=== PATIENT | female | born 1990 | race American Indian/Alaskan Native ===

== ENCOUNTER 2016-12-22 17:25 | Emergency (ER) | payer MEDICAID ==
--- NOTE | 2016-12-22 19:50 | Emergency Department Report ---
HPI - General Chief Complaint: Dental/Oral Time Seen by Provider: 12/22/16 19:27 - HPI HPI: The patient is a 26-year-old female at 28 weeks gestation who is compliant with PROCESS ENGINEERING TECHNICIAN visits who presents to ED complaining of 8/10 pain in the right side of his mouth x one half months. Patient states that the pain started 2 months ago and has increased in severity over the days. The pain is exacerbated by eating and opening of the mouth. The pain is located on the right lower side of the mouth. Patient states that her wisdom tooth the back on the right side. She denies any complications with the . Patient states the pain is alleviated initially with pain medication but comes back. Patient states that it radiates towards ear. Patient describes a as a throbbing, pressure-like sensation. Patient states otherwise well and has no other complaints. Patient has had no fevers and no chills. No chest pain, no shortness of breath. No abdominal pain. No shortness of breath or recent trauma to the face. ED Past Medical Hx - Past Medical History Hx Diabetes: Yes (IDDM) - Surgical History Past Surgical History?: No - Social History Smoking Status: Never Smoker Substance Use Type: None - Medications Home Medications: Home Medications Medication Instructions Recorded Confirmed Last Taken Type Insulin Aspart Prot/Aspart(Nf) See Protocol SQ QACHS 03/29/15 03/29/15 03/28/15 History [NovoLOG Mix 70/30 VIAL] Sulfamethoxazole/Trimethoprim 1 each PO BID #6 tablet 03/29/15 Unknown Rx [Bactrim DS TAB] Acetaminophen/Codeine [Tylenol 1 tab PO Q6H #12 tablet 12/22/16 Unknown Rx /Codeine # 3 tab] Amoxicillin [Trimox CAP] 500 mg PO TID #24 capsule 12/22/16 Unknown Rx ED Review of Systems ROS: Stated complaint: TOOTHACHE Other details as noted in HPI Constitutional: denies: chills, fever Eyes: denies: eye pain, eye discharge, vision change ENT: dental pain. denies: ear pain, throat pain Respiratory: denies: cough, shortness of breath, wheezing Cardiovascular: denies: chest pain, palpitations Endocrine: no symptoms reported Gastrointestinal: denies: abdominal pain, nausea, vomiting, diarrhea Genitourinary: denies: urgency, dysuria, discharge Musculoskeletal: denies: back pain, joint swelling, arthralgia Skin: denies: rash, lesions Neurological: denies: headache, weakness, paresthesias, abnormal gait Psychiatric: denies: anxiety, depression Hematological/Lymphatic: denies: easy bleeding, easy bruising Physical Exam - Physical Exam Vital Signs: Vital Signs 12/22/16 17:33 Temperature 98.7 F Pulse Rate 88 Respiratory 16 Rate Blood Pressure 124/81 O2 Sat by Pulse 100 Oximetry Physical Exam: GENERAL: Alert and oriented x3, mild distress due to tooth pain, Normal Gait, atraumatic. HEAD: Head is normocephalic and a-traumatic. EYES: Extra ocular muscles are intact. Pupils are equal, round, and reactive to light and accommodation. EARS: symetrical, atraumatic, non tender, ear canal clear and moderate cerumen, tympanic membrance non inflamed. gross auditory nml bilaterally. MOUTH:Mouth is well hydrated and without lesions. Tonsils nonerythematous or swollen, Uvula midline, Tongue not elevated. Mucous membranes are moist. Posterior pharynx clear, no exudate or lesions. Patent airways. No missing teeth, no gingival enlargement, tenderness to palpation of teeth #32, presents in moderately out with minor dental caries. LUNGS: Symetrical with respiration, No wheezing, no rales or crackles, CTAB. HEART: S1, S2 present, regular rate and rhythm without murmur, no rubs, no gallops. Non tender to palpation SKIN: Warm and dry, No lesions, No ulceration or induration present. ED Course Vital Signs 12/22/16 17:33 Temperature 98.7 F Pulse Rate 88 Respiratory 16 Rate Blood Pressure 124/81 O2 Sat by Pulse 100 Oximetry ED Medical Decision Making - Medical Decision Making 26-year-old female who presents with right-sided Facial pain secondary to odontogenic caries/infection ED course: Patient received 1000 mg of amoxicillin, 1 tablets of Tylenol No. 3. Odontogenic infection versus ear infection. Based upon history and physical examination, pain is a result of an infection of tooth number 32 and that the pain she feels on the right side of his face and towards the ear is referred pain from this infectious process. She has no evidence of acute impending airway compromise. At this point, patient will be discharged home on some antibiotics and pain trial, she will do well with an outpatient course of antibiotics. Follow up with the Dental Clinic as referred. Vital signs are normal patient is in no acute distress. Critical care attestation.: If time is entered above; I have spent that time in minutes in the direct care of this critically ill patient, excluding procedure time. ED Disposition Clinical Impression: Pain due to dental caries, Tooth infection Disposition: TO HOME OR SELFCARE Is pt being admited?: No Does the pt Need Aspirin: No Condition: Stable Instructions: Toothache (ED), Dental Caries (ED) Prescriptions: Acetaminophen/Codeine [Tylenol /Codeine # 3 tab] 1 tab PO Q6H #12 tablet Amoxicillin [Trimox CAP] 500 mg PO TID #24 capsule Referrals: PRIMARY CARE, [Primary Care Provider] - 3-5 Days [facility] [Outside] - 3-5 Days [facility] [Outside] - 3-5 Days Forms: Accompanied Note, Work/School Release Form(ED) Time of Disposition: 19:57
[2016-12-22] MEDS ORDERED: TRIMOX PO ONE (19:51)
[2016-12-22] MEDS ORDERED: TYLENOL #3 PO ONE (19:51)
[2016-12-22 20:34] VITALS: BP 111/72
== END 2016-12-22 20:37 | disposition home or self-care (01) ==
LOC: ED 17:25
DX: O98.813 Other maternal infectious and parasitic diseases complicating pregnancy, third trimester (principal); K08.89 Other specified disorders of teeth and supporting structures; E10.9 Type 1 diabetes mellitus without complications; Z79.4 Long term (current) use of insulin; Z3A.25 25 weeks gestation of pregnancy
CPT/HCPCS: 99282

== ENCOUNTER 2017-03-04 08:33 | Outpatient (CLI) | payer MEDICAID ==
[2017-03-04 09:08] VITALS: BP 112/65
[2017-03-04] MEDS ORDERED: BRETHINE SUB-Q ONE (11:19)
[2017-03-04 11:46] LABS: Bacteria,Urine 1+ /HPF (Negative); Bilirubin,Urine NEG (Negative); Blood,Urine SM (Negative); Ketones,Urine 20 mg/dL (Negative); Leukocyte Esterase,Urine MOD (Negative); Mucus,Urine FEW /HPF; Nitrite,Urine NEG (Negative); Protein,Urine <15 mg/dL mg/dL (Negative); Urobilinogen,Urine < 2.0 mg/dL (<2.0)
[2017-03-04] MEDS ORDERED: LACTATED RINGERS 500 ML IV ONE (12:00)
== END 2017-03-04 11:45 | disposition home or self-care (01) ==
LOC: TRG 08:33
PROVIDERS: ATTEND Obstetrics & Gynecology
DX: O47.03 False labor before 37 completed weeks of gestation, third trimester (principal); Z87.891 Personal history of nicotine dependence; Z3A.36 36 weeks gestation of pregnancy
CPT/HCPCS: 59025; 81001; 96360

== ENCOUNTER 2017-03-13 13:20 | Inpatient (IN) | payer MEDICAID ==
[2017-03-13] MEDS ORDERED: BRETHINE SUB-Q PRN (15:59)
[2017-03-13] MEDS ORDERED: ePHEDrine SULFATE IV PRN ×2 (15:59→22:28)
[2017-03-13] MEDS ORDERED: MINERAL OIL PO PRN (15:59)
[2017-03-13] MEDS ORDERED: BRETHINE IVP PRN (15:59)
[2017-03-13] MEDS ORDERED: XYLOCAINE 2% INFILTRATI ONE (15:59)
[2017-03-13] MEDS ORDERED: NUBAIN IV PRN (15:59)
[2017-03-13] MEDS ORDERED: PITOCin/NS 20 UNIT/1000ML DRIP 20 UNITS/1,000 ML BAG IV SCH (16:00)
[2017-03-13] MEDS ORDERED: LACTATED RINGERS 1,000 ML ONE (16:08)
--- NOTE | 2017-03-13 16:38 | History and Physical Report ---
History of Present Illness Date of examination: 03/13/17 Date of admission: 03/13/17 13:20 Chief complaint: demise at 37 weeks History of present illness: This patient is a 26-year-old female , LMP 06/24/2016, EDC 03/31/2017 who is at 37 weeks and 3 days gestation who was sent from the [facility] office with diagnosis of demise. She did have an ultrasound at the office which confirmed the demise. She went for a routine visit today and said that her baby has not been moving for the past 2 days. She did not call any provider or go to the hospital to be evaluated. She has a history of pre-gestational type 2 diabetes and has been on insulin since prior to this . She has been followed at [facility] and has been having weekly NST and biophysical profile. Her last visit with the perinatologist was a week ago on 03/06/2017 where her biophysical profile of 8/8 and NST was reactive. Her fasting glucose has been in the 80-91 range and 2 hours postprandial between 110-120s. On arrival to the maternity floor, she complained of irregular contractions. She denied any vaginal bleeding or fluid leakage. Past medical history: Pre-gestational diabetes-II, has been taking insulin since prior to this . Genital herpes has been on suppressive therapy since 36 weeks gestation. Past surgical history denies Allergies: denies any drug allergies. Social history: denies any smoking alcohol or drug use. Family history: noncontributory. SANE RN history: 12, 28, 4-5 days. Obstetric history: nulligravida. Medications: insulin, Valtrex. Review of systems: as above. Physical exam: Geneeral: No acute distress. HEENT: normal. Cardiovascular: normal abnormal heart sound. Chest: clear to auscultation bilaterally. Breast exam: deferred. Neuro: Alert, awake, oriented 3. Extremities: no edema or tenderness no Homans sign. Abdomen: is soft nontender palpable contractions uterus gravid. Pelvic exam cervix is 2 cm 50% dilated -2 station labs: RPR nonreactive, hepatitis B surface antigen negative, HIV negative, type and screen O+, quad screen negative for Down syndrome. Assessment: 1. 26 years old at 37 weeks and 3 days gestation with demise. Will admit the patient to maternity floor. Routine admission labs, TORCH titer, coagulation profile. 2. Early labor. Pitocin augmentation. 3. Pre-gestational diabetes type 2. Will do FS every hours with insulin coverage. 4. GBS positive. Antibiotics for endometritis prophylaxis. 5. Genital herpes. No outbreak currently. Past History - Obstetrical History : 1 Medications and Allergies Allergies Allergy/AdvReac Type Severity Reaction Status Date / Time No Known Allergies Allergy Verified 10/18/15 09:27 Home Medications Medication Instructions Recorded Confirmed Last Taken Type Amoxicillin [Trimox CAP] 500 mg PO QDAY 03/04/17 03/04/17 1 Day Ago History Insulin Regular, Human 14 unit SQ QHS 03/04/17 03/04/17 1 Day Ago History Insulin Regular, Human 20 unit SQ QAM 03/04/17 03/04/17 1 Day Ago History NovoLIN N 10 unit SQ TID 03/04/17 03/04/17 1 Day Ago History Active Meds: Active Medications Ephedrine Sulfate (Ephedrine Sulfate) 10 mg IV Q2M PRN PRN Reason: Hypotension Stop: 03/13/17 16:04 Ampicillin Sodium (Polycillin/Ns 1 Gm/50 Ml) 1 gm in 50 mls @ 100 mls/hr IV Q4HR NARA PRN Reason: Protocol Lactated Ringer's (Lactated Ringers) 1,000 mls @ 125 mls/hr IV DIRECT NARA Oxytocin/Sodium Chloride (Pitocin/Ns 20 Unit/1000ml Drip) 20 units in 1,000 mls @ 125 mls/hr IV DIRECT NARA Lidocaine (Xylocaine 2%) 20 ml INFILTRATI ONCE ONE Stop: 03/13/17 16:00 Mineral Oil (Mineral Oil) 30 ml PO QHS PRN PRN Reason: Constipation Nalbuphine HCl (Nubain) 10 mg IV Q2H PRN PRN Reason: Pain, Moderate (4-6) - Vital Signs Vital signs: Vital Signs Pulse BP 77 120/69 03/13/17 14:56 03/13/17 14:56 Temp Pulse Resp BP Pulse Ox 84 129/86 03/13/17 15:26 03/13/17 15:26 Results Abnormal lab results 03/13/17 Range/Units 15:03 POC Glucose 185 H (70-105) All other labs normal.
[2017-03-13 17:20] LABS: Hematocrit 43.6 % (30.3-42.9); Hemoglobin 15.4 gm/dl (10.1-14.3); Mean Corpuscular HGB Conc 35 % (30-34); Mean Corpuscular Hemoglobin 30 pg (28-32); Mean Corpuscular Volume 85 fl (79-97); Platelet Count 210 K/mm3 (140-440); Red Blood Count 5.12 M/mm3 (3.65-5.03); Red Cell Distribution Width 13.6 % (13.2-15.2); White Blood Count 8.9 K/mm3 (4.5-11.0)
[2017-03-13] MEDS: LACTATED RINGERS 1,000 ML IV SCH ×3 (17:47→23:15)
[2017-03-13] MEDS ORDERED: AMBIEN PO PRN (17:49)
[2017-03-13] MEDS ORDERED: CYTOTEC VG SCH (18:00)
--- NOTE | 2017-03-13 18:04 | Progress Note ---
Assessment and Plan A: IUP @ 37 3/7 Weeks Pre-Gesational Diabetes IUFD P: Cytotec 100mcg intravaginally x 1 After Cytotec; start Pitocin Augmentation Continue MD Management for Diabetes Subjective - Subjective Date of service: 03/13/17 Patient reports: contractions Objective - Vital Signs Vital Signs: Vital Signs - 12hr 03/13/17 03/13/17 03/13/17 14:56 15:26 16:57 Pulse Rate 77 84 80 Blood Pressure 120/69 129/86 110/65 03/13/17 03/13/17 17:27 17:58 Pulse Rate 81 76 Blood Pressure 103/64 126/75 - Exam Breasts: normal Cardiovascular: Regular rate Lungs: Clear to auscultation, Normal air movement Abdomen: Present: normal appearance, soft, normal bowel sounds Uterus: Present: normal, firm, fundal height above umbilicus FHR: other Uterine Contraction Monitor Mode: External Cervical Dilatation: 3 (Intact) Cervical Effacement Percentage: 60 station: -2 Uterine Contraction Pattern: Irregular Uterine Contraction Intensity: Mild Extremities: normal - Labs Labs: Abnormal Labs 03/13/17 03/13/17 15:03 16:53 RBC 5.12 H Hgb 15.4 H Hct 43.6 H MCHC 35 H POC Glucose 185 H Laboratory Results - last 24 hr 03/13/17 03/13/17 03/13/17 15:03 16:53 16:53 WBC 8.9 RBC 5.12 H Hgb 15.4 H Hct 43.6 H MCV 85 MCH 30 MCHC 35 H RDW 13.6 Plt Count 210 POC Glucose 185 H Blood Type O POSITIVE Antibody Screen TNR
[2017-03-13] MEDS ORDERED: PITOCin/NS 30 UNIT/500ML 30 UNITS/500 ML BAG IV SCH (19:00)
[2017-03-13] MEDS: STADOL IV PRN ×2 (19:10→21:14)
[2017-03-13] MEDS ORDERED: ePHEDrine SULFATE ONE (22:25)
[2017-03-13] MEDS ORDERED: NARCAN 2 MG/2 ML IV PRN (22:28)
--- NOTE | 2017-03-13 22:28 | Anesthesia Consultation ---
Anesthesia Consult and Med Hx Date of service: 03/13/17 - Airway Anesthetic Teeth Evaluation: Good ROM Head & Neck: Adequate Mental/Hyoid Distance: Adequate Mallampati Class: Class II Intubation Access Assessment: Probably Good - Pulmonary Exam CTA: Yes - Cardiac Exam Cardiac Exam: RRR - Pre-Operative Health Status ASA Pre-Surgery Classification: ASA2 Proposed Anesthetic Plan: Epidural - Pulmonary Hx Asthma: No COPD: No Hx Pneumonia: No - Cardiovascular System Hx Hypertension: No - Central Nervous System Hx Seizures: No Hx Psychiatric Problems: No - Endocrine Hx Renal Disease: No Hx End Stage Renal Disease: No Hx Hypothyroidism: No Hx Hyperthyroidism: No - Hematic Hx Anemia: No Hx Sickle Cell Disease: No - Other Systems Hx Alcohol Use: No
[2017-03-13] MEDS ORDERED: fentaNYL-BUPIV 2 MCG/ML-0.125% 200 MCG/100 ML BAG EPIDURAL SCH (23:00)
[2017-03-13] MEDS: POLYCILLIN/NS 1 GM/50 ML 1 GM/50 ML BAG IV SCH (23:15)
[2017-03-14] MEDS: STADOL IV PRN (02:04)
[2017-03-14] MEDS: POLYCILLIN/NS 1 GM/50 ML 1 GM/50 ML BAG IV SCH ×2 (02:49→03:20)
[2017-03-14] MEDS ORDERED: CYTOTEC ONE (03:59)
[2017-03-14] MEDS ORDERED: CYTOTEC PR ONE (04:00)
[2017-03-14] MEDS ORDERED: BENADRYL PO PRN (04:07)
[2017-03-14] MEDS ORDERED: MILK OF MAGNESIA PO PRN (04:07)
[2017-03-14] MEDS ORDERED: PHENERGAN PR PRN (04:07)
[2017-03-14] MEDS ORDERED: NORCO 5/325 PO PRN (04:07)
[2017-03-14] MEDS ORDERED: DULCOLAX PR PRN (04:07)
[2017-03-14] MEDS ORDERED: ZOFRAN IV PRN (04:07)
[2017-03-14] MEDS ORDERED: TUCKS PAD TP PRN (04:07)
[2017-03-14] MEDS ORDERED: LANSINOH TP PRN (04:07)
--- NOTE | 2017-03-14 04:14 | Procedure Note ---
OB Delivery Note - Delivery Date of Delivery: 03/14/17 (0349) Surgeon: DAVID BARRERA Estimated blood loss: 300cc - Vaginal Delivery presentation: vertex Delivery position: OA Intrapartum events: other(please specify) (Diabetes) Delivery induction: misoprostol Delivery augmentation: rupture of membranes (AROM of a large amount of clear fluid at 0325) Delivery monitor: external uterine Route of delivery: Delivery placenta: spontaneous Delivery cord: 3 umbilical vessels Episiotomy: none Delivery laceration: none Anesthesia: epidural Delivery comments: of a 6'9 male demise at 0349 on 03/14/2017 with Apgars of 0,0,0 over a intact perineum under epidural anesthesia. Cord clamped and cut and demise placed of warmer. Spontaneous delivery of placenta complete and intact with Hernandez side presenting at 0352. Fundus boggy immediately after placental delivery. 20U of Pitocin given IM; followed by 1000mcg of Cytotec placed rectally. Fundus became firm with external uterine massage. Placenta to pathology. - Infant A at 1 minute: 0 at 5 minutes: 0 Gender: Male (6'9)
[2017-03-14] MEDS ORDERED: SODIUM CHLORIDE FLUSH SYRINGE 10 ML IV NR (05:00)
[2017-03-14] MEDS ORDERED: PITOCin/NS 20 UNIT/1000ML DRIP 20,000 MILLIUNITS/1,000 ML BAG IV ONE (06:25)
[2017-03-14] MEDS: MOTRIN PO SCH ×3 (06:51→17:42)
[2017-03-14] MEDS: COLACE PO SCH ×2 (12:10→22:48)
[2017-03-14] MEDS ORDERED: D50W (25GM) Syringe IV PRN (14:39)
[2017-03-14 16:16] LABS: Hematocrit 39.6 % (30.3-42.9)
[2017-03-15] MEDS: MOTRIN PO SCH ×3 (00:14→12:04)
--- NOTE | 2017-03-15 08:53 | Progress Note ---
Assessment and Plan A: S/P Vaginal delivery, stillborn Diabetes P; Discharge home today Subjective - Subjective Date of service: 03/15/17 Principal diagnosis: Patient reports: appetite normal (stillborn) Objective - Vital Signs Latest vital signs: Vital Signs Temp Pulse Resp BP BP Pulse Ox 03/15/17 04:00 98.6 F 69 16 111/76 03/15/17 00:00 98.6 F 78 16 111/69 03/14/17 19:30 98.6 F 74 16 101/59 03/14/17 16:07 98.3 F 74 18 100/68 99 03/14/17 11:51 98.0 F 69 16 104/61 91 Intake and Output 03/14/17 03/15/17 03/15/17 22:59 06:59 14:59 Intake Total 540 Balance 540 Intake: Oral 240 Intake, Free Water 300 Other: Total, Intake Amount 240 # Voids Void 1 - Exam Breasts: Present: deferred, mass Lungs: Present: Clear to auscultation Abdomen: Present: soft Vulva: both: normal Uterus: Present: fundal height below umbilicus Extremities: Present: normal Deep Tendon Reflex Grade: Normal +2 - Labs Labs: Abnormal lab results 03/14/17 03/14/17 03/14/17 Range/Units 03:27 11:58 17:00 POC Glucose 268 H 303 H 233 H (70-105) 03/14/17 03/15/17 Range/Units 22:19 07:55 POC Glucose 176 H 140 H (70-105)
--- NOTE | 2017-03-15 08:54 | Discharge Summary ---
Providers - Providers Date of Admission: 03/13/17 13:20 Date of discharge: 03/15/17 Attending physician: SILVERIO CASSIDY MD 03/14/17 14:39 Consult to Dietitian/Nutrition [CONS] Routine Physician Instructions: Reason For Exam: Reason for Consult: Diet education Primary care physician: SILVERIO CASSIDY MD Hospitalization Reason for admission: induction of labor, IUFD Delivery: Episiotomy: none Laceration: none Incision: normal Other procedures: none complications: none Discharge diagnosis: intrapartum demise baby: male Condition at discharge: Good Disposition: DC-01 TO HOME OR SELFCARE Plan - Provider Discharge Summary Activity: routine, no sex for 6 weeks, no strenuous exercise Diet: routine Instructions: routine Additional instructions: [] Smoking cessation referral if applicable(refer to patient education folder for contact #) [] Refer to [facility] Booklet Call your doctor immediately for: * Fever > 100.5 * Heavy vaginal bleeding ( >1 pad per hour) * Severe persistent headache * Shortness of breath * Reddened, hot, painful area to leg or breast * Drainage or odor from incision. * Keep incision clean and dry at all times and follow doctor's instructions regarding bathing/showering - Follow up plan Follow up: SILVERIO CASSIDY MD [Primary Care Provider] - 6 Weeks
[2017-03-15] MEDS: COLACE PO SCH (12:05)
[2017-03-15 14:25] VITALS: BP 96/64
[2017-03-15 19:59] LABS: TOXOPLASMA IGM AB <8.00 AU/mL (<8.00)
[2017-03-16 20:46] LABS: CYTOMEGALOVIRUS AB IGM <30.00 AU/mL (<30.00)
== END 2017-03-15 14:50 | disposition home or self-care (01) | DRG 774 ==
LOC: LD 13:20 → OB 03-14 06:16
PROVIDERS: ADMIT Obstetrics & Gynecology; ATTEND Obstetrics & Gynecology
PROC: 10E0XZZ Delivery of Products of Conception, External Approach (ICD-10-PCS; principal; 2017-03-14)
PROC: 3E0R3BZ Introduction of Anesthetic Agent into Spinal Canal, Percutaneous Approach (ICD-10-PCS; 2017-03-14)
PROC: 3E0P3VZ Introduction of Hormone into Female Reproductive, Percutaneous Approach (ICD-10-PCS; 2017-03-14)
PROC: 00HU33Z Insertion of Infusion Device into Spinal Canal, Percutaneous Approach (ICD-10-PCS; 2017-03-14)
DX: O36.4XX0 Maternal care for intrauterine death, not applicable or unspecified (principal); O24.12 Pre-existing type 2 diabetes mellitus, in childbirth; O98.32 Other infections with a predominantly sexual mode of transmission complicating childbirth; A60.00 Herpesviral infection of urogenital system, unspecified; O99.824 Streptococcus B carrier state complicating childbirth; Z37.1 Single stillbirth; Z3A.37 37 weeks gestation of pregnancy
CPT/HCPCS: 36415; 82962; 85014; 85018; 85027; 85220; 85613; 86592; 86644; 86645; 86777; 86778; 86850; 86900; 86901; 88307; J0290; J0595; J1815; J2300; J2590; J7120

== ENCOUNTER 2017-09-19 08:14 | Emergency (ER) | payer MEDICAID ==
[2017-09-19 08:45] VITALS: BP 127/78
[2017-09-19] MEDS ORDERED: TYLENOL/CODEINE PO ONE (10:16)
[2017-09-19] MEDS ORDERED: MOTRIN PO ONE (10:16)
[2017-09-19] MEDS ORDERED: DELTASONE PO ONE (10:17)
--- NOTE | 2017-09-19 10:18 | Emergency Department Report ---
Minor Respiratory - HPI Chief Complaint: Sore Throat Stated Complaint: SORE THROAT/COUGH Time Seen by Provider: 09/19/17 10:14 Duration: 3 Days Severity: moderate Minor Respiratory: Yes Rhinorrhea, Yes Sore Throat, Yes Able to Tolerate Fluids , Yes Cough, No Ear Pain, No Sick Contacts, No Hemoptysis, No Chest Pain, No Shortness of Breath, No Fever Other History: 27-year-old female presents with a yellow sputum productive cough in, runny nose the past 3 or 4 days. ED Review of Systems ROS: Stated complaint: SORE THROAT/COUGH Other details as noted in HPI Constitutional: denies: chills, fever Eyes: denies: eye pain, eye discharge, vision change ENT: congestion. denies: ear pain, throat pain, dental pain, hearing loss Respiratory: cough. denies: shortness of breath, wheezing Cardiovascular: denies: chest pain, palpitations Endocrine: no symptoms reported Gastrointestinal: denies: abdominal pain, nausea, vomiting, diarrhea, constipation Genitourinary: denies: urgency, dysuria, discharge Musculoskeletal: denies: back pain, joint swelling, arthralgia Skin: denies: rash, lesions Neurological: denies: headache, weakness, paresthesias Psychiatric: denies: anxiety, depression Hematological/Lymphatic: denies: easy bleeding, easy bruising ED Past Medical Hx - Past Medical History Hx Hypertension: No Hx Congestive Heart Failure: No Hx Diabetes: No Hx Deep Vein Thrombosis: No Hx Renal Disease: No Hx Sickle Cell Disease: No Hx Seizures: No Hx Asthma: No Hx COPD: No Hx HIV: No - Social History Smoking Status: Current Every Day Smoker Substance Use Type: None - Medications Home Medications: Home Medications Medication Instructions Recorded Confirmed Last Taken Type Amoxicillin [Trimox CAP] 500 mg PO QDAY 03/04/17 03/14/17 1 Day Ago History ~03/03/17 Insulin Regular, Human 14 unit SQ QHS 03/04/17 03/14/17 1 Day Ago History ~03/03/17 Insulin Regular, Human 20 unit SQ QAM 03/04/17 03/14/17 1 Day Ago History ~03/03/17 NovoLIN N 10 unit SQ TID 03/04/17 03/14/17 1 Day Ago History ~03/03/17 Ibuprofen [Motrin] 600 mg PO Q8H PRN #30 tablet 09/19/17 Unknown Rx Nystas/Diphen/Xyl Visc/Mylanta 30 ml MM Q4H PRN #200 ml 09/19/17 Unknown Rx [Magic Mouthwash] guaiFENesin ER [Mucinex ER] 600 mg PO Q12H #20 tablet.er 09/19/17 Unknown Rx Minor Respiratory Exam - Exam General: Vital signs noted. No distress. Alert and acting appropriately. HEENT: Yes Moist Mucous Membranes, No Pharyngeal Erythema, No Pharyngeal Exudates, No Rhinorrhea, No Conjuctival Injection, No Frontal Tenderness, No Maxillary Tenderness Ear: Neither TM Bulge, Neither TM Erythema, Neither EAC Pain, Neither EAC Discharge Neck: Yes Supple, No Adenopathy Lungs: Yes Good Air Exchange, No Wheezes, No Ronchi, No Stridor, No Cough, No Labored Respirations, No Retractions, No Use of Accessory Muscles, No Other Abnormal Lung Sounds Heart: Yes Regular, No Murmur Abdomen: Yes Normal Bowel Sounds, No Tenderness, No Peritoneal Signs Skin: No Rash, No Edema Neurologic: Alert and oriented, no deficits. Musculoskeletal: Unremarkable. ED Course Vital Signs 09/19/17 08:42 Temperature 99.3 F Pulse Rate 94 H Respiratory 20 Rate Blood Pressure 127/78 O2 Sat by Pulse 99 Oximetry ED Medical Decision Making - Radiology Data Radiology results: report reviewed, image reviewed Fluoro Time In Minutes: CHEST 2 VIEWS INDICATION: Cough, fever. COMPARISON: None similar at this institution. FINDINGS: PA and lateral chest radiographs demonstrate normal cardiomediastinal silhouette. Clear lungs. Intact bones. CONCLUSION: No acute disease in the chest. Thank you for the opportunity to participate in this patient's care. Transcribed By: RS Dictated By: PORTIA MERCEDES MD Electronically Authenticated By: PORTIA MERCEDES MD Signed Date/Time: 09/19/17 1040 - Medical Decision Making 27-year-old female presents with flulike symptoms. Fever resolved no fever during the ED stay. Chest x-ray ordered, chest x-ray shows no acute finding Discussed with the patient symptomatic relief with [id number] medications. Discussed continue Tylenol or Motrin as needed for fever and pain. Discussed increase fluids and diet intake. Discussed rest much needed. Discussed daily vitamin C for immune booster. Discussed follow-up with pcp in 3-5 days. Patient's mother verbally states she understands and will comply the following instructions and follow-up Vital signs stable. Patient is in no acute distress Critical care attestation.: If time is entered above; I have spent that time in minutes in the direct care of this critically ill patient, excluding procedure time. ED Disposition Clinical Impression: URI with cough and congestion Disposition: DC- TO HOME OR SELFCARE Is pt being admited?: No Does the pt Need Aspirin: No Condition: Stable Instructions: Upper Respiratory Infection (ED), Acute Cough (ED) Additional Instructions: Make sure to follow up with the primary care physician as discussed. Take all your medications as you've been prescribed. If you have any worsening symptoms or develop new symptoms please return to ED immediately. Prescriptions: guaiFENesin ER [Mucinex ER] 600 mg PO Q12H #20 tablet.er Ibuprofen [Motrin] 600 mg PO Q8H PRN #30 tablet PRN Reason: Pain Nystas/Diphen/Xyl Visc/Mylanta [Magic Mouthwash] 30 ml MM Q4H PRN #200 ml PRN Reason: Sore Throat Referrals: MERARY TAY MD [Primary Care Provider] - 3-5 Days [facility] [Outside] - 3-5 Days [facility] [Outside] - 3-5 Days [facility] [Outside] - 3-5 Days Forms: Work/School Release Form(ED) Time of Disposition: 11:27
--- NOTE | 2017-09-19 10:45 | XRay Report ---
CHEST 2 VIEWS INDICATION: Cough, fever. COMPARISON: None similar at this institution. FINDINGS: PA and lateral chest radiographs demonstrate normal cardiomediastinal silhouette. Clear lungs. Intact bones. CONCLUSION: No acute disease in the chest. Thank you for the opportunity to participate in this patient's care.
== END 2017-09-19 11:35 | disposition home or self-care (01) ==
LOC: ED 08:14
DX: J06.9 Acute upper respiratory infection, unspecified (principal); F17.200 Nicotine dependence, unspecified, uncomplicated
CPT/HCPCS: 71046; 99283; J7512

== ENCOUNTER 2020-05-09 13:08 | Outpatient (CLI) | payer MEDICAID ==
[2020-05-09] MEDS ORDERED: LACTATED RINGERS 1,000 ML IV SCH (14:00)
[2020-05-09] MEDS: TERBUTALINE 1 MG/1 ML INJ SUB-Q SCH ×2 (14:18→16:10)
--- NOTE | 2020-05-09 16:31 | Ultrasound Report ---
US OB limited, US OB BPP wo non-stress INDICATION / CLINICAL INFORMATION: presenation, ASHLI. COMPARISON: None available. FINDINGS: A single fetus is seen in breech position. ASHLI is 15.7. heart rate is 165. BPP is 8/8 IMPRESSION: Single fetus in breech position with heart rate 165. ASHLI is 15.7 and BPP is 8/8 Signer Name: Carter Galvez MD FACR Signed: 05/09/2020 4:27 PM Workstation Name: [id number]
[2020-05-09 16:50] VITALS: BP 115/65
== END 2020-05-09 18:03 | disposition home or self-care (01) ==
LOC: APU 13:08 → TRG 13:08
PROVIDERS: ATTEND Obstetrics & Gynecology
DX: O62.9 Abnormality of forces of labor, unspecified (principal); O24.119 Pre-existing type 2 diabetes mellitus, in pregnancy, unspecified trimester; E11.9 Type 2 diabetes mellitus without complications; Z79.4 Long term (current) use of insulin; Z87.891 Personal history of nicotine dependence; Z3A.36 36 weeks gestation of pregnancy
CPT/HCPCS: 59025; 76815; 76819; 96360; 96361; 96372; J3105; J7120

== ENCOUNTER 2020-05-12 19:29 | Inpatient (IN) | payer MEDICAID ==
--- NOTE | 2020-05-12 22:22 | Ultrasound Report ---
OB Ultrasound HISTORY: presentation. TECHNIQUE: Grayscale and color imaging performed. COMPARISON: 05/09/2020 IMPRESSION: A single image shows a cephalic presentation of the fetus. Signer Name: Pb Lamar MD Signed: 05/12/2020 10:17 PM Workstation Name: [id number]
[2020-05-12] MEDS ORDERED: fentaNYL 100 MCG/2 ML INJ IV PRN (22:45)
[2020-05-12] MEDS ORDERED: MINERAL OIL 30 ML ORAL LIQD PO PRN (22:45)
[2020-05-12] MEDS ORDERED: TERBUTALINE 1 MG/1 ML INJ SUB-Q PRN (22:45)
[2020-05-12] MEDS ORDERED: BUTORPHANOL 2 MG/1 ML INJ IV PRN ×2 (22:45)
[2020-05-12] MEDS ORDERED: LIDOCAINE (2%) 20 MG/1 ML VIAL 20 ML MDV INFILTRATI ONE (22:45)
[2020-05-12] MEDS ORDERED: AMPICILLIN/NS 2 GM/100 ML 2 GM/100 ML BAG IV ONE (22:45)
[2020-05-12] MEDS ORDERED: ePHEDrine SULFATE 50 MG/1 ML INJ IV PRN (22:45)
[2020-05-12] MEDS ORDERED: OXYTOCIN DRIP 30 UNITS/500 ML BAG IV SCH ×2 (23:00)
[2020-05-12] MEDS ORDERED: KETOROLAC 30 MG/1 ML INJ ONE (23:30)
[2020-05-12] MEDS ORDERED: FAMOTIDINE 20 MG/2 ML INJ IV ONE (23:40)
[2020-05-12] MEDS ORDERED: BICITRA ORAL LIQD 30ML PO ONE (23:40)
[2020-05-12 23:41] LABS: Hematocrit 43.1 % (30.3-42.9); Hemoglobin 14.7 gm/dl (10.1-14.3); Mean Corpuscular HGB Conc 34 % (30-34); Mean Corpuscular Volume 86 fl (79-97); Platelet Count 247 K/mm3 (140-440); Red Blood Count 5.04 M/mm3 (3.65-5.03); Red Cell Distribution Width 13.7 % (13.2-15.2)
[2020-05-12] MEDS ORDERED: METOCLOPRAMIDE 10 MG/2 ML INJ IV NR (23:45)
--- NOTE | 2020-05-12 23:51 | Anesthesia Day of Surgery ---
Anesthesia Day of Surgery - Day of Surgery Patient Examined: Yes Patient H&P Reviewed: Yes Patient is NPO: Yes
--- NOTE | 2020-05-12 23:51 | Anesthesia Consultation ---
Anesthesia Consult and Med Hx Date of service: 05/12/20 - Airway Anesthetic Teeth Evaluation: Good ROM Head & Neck: Adequate Mental/Hyoid Distance: Adequate Mallampati Class: Class II Intubation Access Assessment: Probably Good - Pulmonary Exam CTA: Yes - Cardiac Exam Cardiac Exam: RRR - Pre-Operative Health Status ASA Pre-Surgery Classification: ASA2 Proposed Anesthetic Plan: Spinal - Pulmonary Hx Asthma: No COPD: No Hx Pneumonia: No - Cardiovascular System Hx Hypertension: No - Central Nervous System Hx Seizures: No Hx Psychiatric Problems: No - Endocrine Hx Renal Disease: No Hx End Stage Renal Disease: No Hx Hypothyroidism: No Hx Hyperthyroidism: No - Hematic Hx Anemia: Yes Hx Sickle Cell Disease: No - Other Systems Hx Alcohol Use: (NOT SINCE )
[2020-05-12] MEDS ORDERED: BUPIVACAINE/PF (0.5%) 5 MG/1 ML 30 ML VIAL INFILTRATI ONE (23:54)
[2020-05-12] MEDS ORDERED: MORPHINE PF 10MG/10 ML AMPULE ONE (23:55)
[2020-05-12] MEDS ORDERED: ONDANSETRON 4 MG/2 ML INJ ONE (23:57)
--- NOTE | 2020-05-13 | History and Physical Report ---
History of Present Illness Date of examination: 05/12/20 Date of admission: 05/12/20 Chief complaint: "I think I'm in labor" History of present illness: 29 y/o single AA FM presents to [facility] @ 37 wks with c/o uc. Pt denies VB and admits to active FM. She states she was scheduled for a c/s at 37 wks r/t breech presentation. An us was done and baby was found to be vertex. Pt initiated her care at 5 4/7 wks at [facility]. 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 She was being co managed by [facility] and taking N42 and R28 in am and R28 and N28 at HS. Pt states she took her Insulin this am and last checked her bs after breakfast. [facility] had ordered an EKG for pt, but she states the EKG was not done. Pt further states she has not taken Valtrex. Upon an assess of pt's genital area herpetic lesions were noted. Dr Ferrell was notified and a c/s was called by . Pt was admitted to L&D for a c/s. Pt states the last time she had something to eat or drink was around 4:30pm. LABS: O pos, AB screen neg, H/H 14/40.9, pap wnl, rubella Immune, RPR NR, HBsAg neg, HIV neg, platelets 332k, Varicella Immune, HSV -2 pos, HGB elec AA, gc/chly/trich- neg, vit D -14, NIPS and cystic fibrosis -neg, MSAFP-pos down syndrome, HgA1c- 11.6%, 24hr urine- 245, GBS pos Past History Past Medical History: diabetes, other (IUFD, PSYCHOTIC DEPRESSION, GBS ) Past Surgical History: no surgical history [employer] History: herpes Family/Genetic History: none Social history: single, full code - Obstetrical History Expected Date of Delivery: 06/02/20 Actual Gestation: 37 Week(s) 1 Day(s) : 2 Para: 0 Hx # Term Pregnancies: 1 Number of Pregnancies: 0 Spontaneous Abortions: 0 Induced : 0 Number of Living Children: 0 Medications and Allergies Allergies Allergy/AdvReac Type Severity Reaction Status Date / Time No Known Allergies Allergy Verified 09/19/17 08:42 Home Medications Medication Instructions Recorded Confirmed Last Taken Type Insulin Regular, Human 14 unit SQ QHS 03/04/17 03/14/17 1 Day Ago History ~03/03/17 Insulin Regular, Human 20 unit SQ QAM 03/04/17 03/14/17 1 Day Ago History ~03/03/17 NovoLIN N 10 unit SQ TID 03/04/17 03/14/17 1 Day Ago History ~03/03/17 RX: Amoxicillin [Trimox CAP] 500 mg PO QDAY 03/04/17 03/14/17 1 Day Ago History ~03/03/17 Ibuprofen [Motrin] 600 mg PO Q8H PRN #30 tablet 09/19/17 Unknown Rx Nystas/Diphen/Xyl Visc/Mylanta 30 ml MM Q4H PRN #200 ml 09/19/17 Unknown Rx [Magic Mouthwash] guaiFENesin ER [Mucinex ER] 600 mg PO Q12H #20 tablet.er 09/19/17 Unknown Rx Active Meds: Active Medications Lidocaine (Xylocaine 2%) 20 ml INFILTRATI ONCE ONE Stop: 05/12/20 22:46 Review of Systems All systems: negative Eyes: deferred Ears, nose, mouth and throat: deferred Breasts: normal Genitourinary: genital sores - Vital Signs Vital signs: Vital Signs Pulse BP Pulse Ox 85 126/66 99 05/12/20 19:56 05/12/20 19:56 05/12/20 19:56 Temp Pulse Resp BP Pulse Ox 98.4 F 75 18 126/66 98 05/12/20 20:08 05/12/20 22:55 05/12/20 20:08 05/12/20 20:08 05/12/20 22:55 - Physical Exam Breasts: Positive: normal Abdomen: Positive: normal appearance, soft, normal bowel sounds Genitourinary (Female): Positive: perineal/vulvar lesions Vulva: both: normal Vagina: Positive: normal moisture Uterus: Positive: enlarged Adnexa: both: normal Anus/Rectum: Positive: normal perianal skin Extremities: Positive: normal - Obstetrical FHR: auscultation normal, category 1 Uterine Contraction Monitor Mode: External Cervical Dilatation: 4 Cervical Effacement Percentage: 75 station: -3 Uterine Contraction Frequency (min): Q3-5 Uterine Contraction Pattern: Irregular Uterine Tone Measurement Phase: Resting Uterine Contraction Intensity: Moderate Results Result Diagrams: 05/12/20 22:00 All other labs normal. Assessment and Plan A: IUP@ 37 wks DM type II, + GBS Hx IUFD @ 37 wks r/t uncontrolled DM Hx Psychotic depression with homicidal and suicidal tendencies HSV II with active outbreak p: Admit to L&D for c/s Notify Anesthesia
[2020-05-13] MEDS ORDERED: ceFAZolin/Water 2 GM/20 ML 2 GM/20 ML SYRINGE IV ONE (00:05)
--- NOTE | 2020-05-13 00:24 | Event Note ---
Date: 05/13/20 Patient is for primary for active herpetic lesions in labor. Patient fully consented for the surgery. Risks, benefits, and alternatives were all discussed with the patient including risk of bleeding, infection, and potential for injury. Patient understands and accepts these risks. Patient agrees to proceed with surgery. All questions were answered.
[2020-05-13] MEDS ORDERED: KETOROLAC 30 MG/1 ML INJ ONE (00:50)
[2020-05-13] MEDS ORDERED: LACTATED RINGERS 1,000 ML ONE (00:51)
[2020-05-13] MEDS ORDERED: INSULIN REGULAR, HUMAN 100 UNIT/ML 3ML VIAL IV ONE (01:04)
[2020-05-13] MEDS ORDERED: LANOLIN/ZINC/DIMETHICONE (LANSINOH) 7 GM TP PRN (01:54)
[2020-05-13] MEDS ORDERED: NALOXONE 0.4 MG/1 ML INJ IV PRN (01:54)
[2020-05-13] MEDS ORDERED: WITCH HAZEL/ GLYCERIN PAD TP PRN (01:54)
[2020-05-13] MEDS ORDERED: MAGNESIUM HYDROXIDE (MOM) ORAL LIQD UDC PO PRN (01:56)
[2020-05-13] MEDS ORDERED: SENNOSIDES 8.6 MG TAB PO PRN (01:56)
[2020-05-13] MEDS ORDERED: ONDANSETRON 4 MG/2 ML INJ IV PRN (01:56)
[2020-05-13] MEDS ORDERED: OXYTOCIN DRIP 30 UNITS/500 ML BAG IV SCH (02:00)
--- NOTE | 2020-05-13 02:02 | Procedure Note ---
OB Delivery Note - Delivery Date of Delivery: 05/13/20 Surgeon: JOSEFINA GARCIA Estimated blood loss: other (800 cc) - Section Preop diagnosis: other (active HSV lesion) Postop diagnosis: other (also, fetus was breech) section procedure: section, primary low transverse Disposition: PACU Complications: none Narrative: Indication: 29-year-old -0-0-0 at 37 weeks is in early labor with active herpes lesion. As result patient taken for primary low transverse . In the OR, the fetus was also noted to be joanna breech. Findings: Normal uterus, tubes and ovaries except for mild omental scarring to both fallopian tubes. These were lysed during the case. Clear fluid. Loose nuchal cord x1. Procedure: Patient taken to the operating room and prepped and draped in the usual fashion. Pfannenstiel skin incision was made and carried down to the underlying fascia. Fascia was incised and the incision was extended bilaterally. Rectus fascia dissected off the rectus muscle both superiorly and inferiorly. Peritoneum identified tented up and entered. Peritoneal incision extended superiorly and inferiorly with good visualization of the bladder. Bladder blade was placed. Uterine incision was made and the incision was extended bilaterally. The baby was delivered in the typical joanna breech fashion. Baby bulb suctioned after delivery. Cord was clamped and cut and handed off to waiting team. The placenta was delivered spontaneously. The uterus was exteriorized and cleared of all clots and debris. Uterine incision closed with 0 Vicryl in a running locked fashion followed by a second imbricating layer of 0 Vicryl. Good hemostasis was noted after a few additional [id number] stitches. Her urine was clear. Uterus tubes and ovaries were returned to the abdominal cavity. Gutters were cleared of all clots and debris and the pelvis was well irrigated. Good hemostasis noted. Interceed placed over the uterine incision and over the lower uterine segment in the midline. Attention was turned to the rectus fascia which was reapproximated with 0 Vicryl in a running fashion. Subcutaneous tissue was irrigated and reapproximated with 2-0 Vicryl in a running fashion. Skin was closed with 4-0 Vicryl in a subcuticular fashion followed by Dermabond. The procedure was concluded at this point and the patient tolerated the procedure well. All instrument and lap counts were correct. - A at 1 minute: 3 at 5 minutes: 8 Gender: Female
--- NOTE | 2020-05-13 02:04 | Post Anesthesia Evaluation ---
- Post Anesthesia Evaluation Patient Participated: Yes Airway Patent: Yes Stable Respiratory Function: Yes Nausea/Vomiting: No Temp > 96.8F: Yes Pain Manageable: Yes Adequeate Hydration: Yes Anesthesia Complications: No Block Receding Appropriately: Yes
[2020-05-13] MEDS ORDERED: AMPICILLIN/NS 1 GM/50 ML 1 GM/50 ML BAG IV SCH (02:54)
[2020-05-13] MEDS: INSULIN REGULAR, HUMAN 100 UNIT/ML 3ML VIAL SUB-Q SCH ×5 (06:17→22:33)
[2020-05-13] MEDS ORDERED: INSULIN REGULAR, HUMAN 100 UNIT/ML 3ML VIAL SUB-Q SCH (07:30)
[2020-05-13] MEDS: INSULIN NPH, HUMAN 100 UNIT/1 ML SUB-Q SCH ×4 (08:15→22:33)
[2020-05-13] MEDS: KETOROLAC 30 MG/1 ML INJ IV PRN ×2 (08:37→22:17)
[2020-05-13] MEDS: LACTATED RINGERS 1,000 ML IV SCH ×2 (08:37→16:15)
[2020-05-13] MEDS: oxyCODONE /ACETAMINOPHEN 5-325MG TAB PO PRN ×2 (12:15→17:50)
[2020-05-13] MEDS ORDERED: diphenhydrAMINE 25 MG CAP PO NR (14:00)
[2020-05-13] MEDS: IBUPROFEN 800 MG TAB PO PRN (15:00)
[2020-05-13 15:07] LABS: Hemoglobin 12.7 gm/dl (10.1-14.3)
[2020-05-14] MEDS ORDERED: IBUPROFEN 800 MG TAB PO PRN (01:54)
[2020-05-14] MEDS: INSULIN REGULAR, HUMAN 100 UNIT/ML 3ML VIAL SUB-Q SCH ×8 (02:11→23:11)
[2020-05-14] MEDS: oxyCODONE /ACETAMINOPHEN 5-325MG TAB PO PRN ×4 (04:31→22:22)
[2020-05-14] MEDS: IBUPROFEN 800 MG TAB PO PRN ×3 (06:45→18:28)
--- NOTE | 2020-05-14 10:23 | Progress Note ---
Assessment and Plan A: /postop day 1 S/P repeat LTCS. P: Encouraged ambulation. Continue current management. Subjective - Subjective Date of service: 05/14/20 Principal diagnosis: /postop day 1 S/P primary LTCS Patient reports: appetite normal, voiding normally, pain well controlled, flatus, ambulating normally, no dizzy ambulation, no nauseated : doing well, in NICU Objective - Vital Signs Latest vital signs: Vital Signs Temp Pulse Resp BP BP Pulse Ox 05/14/20 08:39 98 F 74 18 100/58 100 05/14/20 01:42 97.6 F 69 16 115/54 100 05/13/20 21:20 98.3 F 84 20 100/58 100 05/13/20 15:57 98.3 F 79 18 101/53 99 05/13/20 11:54 98.0 F 67 18 98/43 100 05/13/20 11:00 97.8 F Intake and Output 05/13/20 05/14/20 05/14/20 23:59 07:59 15:59 Intake Total 1434.167 480 Output Total 1200 Balance 234.167 480 Intake: IV 954.167 Lactated Ringers 1,000 ml 954.167 @ 125 mls/hr IV DIRECT NARA Rx#:[id number] Intake, Free Water 480 480 Output: Urine 1200 Void 1200 Other: Total, Output Amount 800 # Voids Void 2 1 - Exam Cardiovascular: Present: Regular rate Lungs: Present: Clear to auscultation Abdomen: Present: normal appearance, soft, normal bowel sounds. Absent: distention, tenderness, guarding, rigidity Uterus: Present: normal, firm, fundal height below umbilicus. Absent: bogginess, tenderness Extremities: Present: normal. Absent: tenderness, edema Incision: Present: normal, dry, dressed - Labs Labs: Abnormal lab results 05/13/20 05/13/20 Range/Units 11:28 17:10 POC Glucose 175 H 112 H (70-105) mg/dL
[2020-05-14] MEDS ORDERED: oxyCODONE /ACETAMINOPHEN 5-325MG TAB PO PRN (10:41)
[2020-05-14] MEDS: SIMETHICONE 80 MG CHEW TAB PO PRN ×2 (10:55→18:29)
[2020-05-14] MEDS: INSULIN NPH, HUMAN 100 UNIT/1 ML SUB-Q SCH ×3 (11:30→22:25)
[2020-05-15] MEDS: INSULIN REGULAR, HUMAN 100 UNIT/ML 3ML VIAL SUB-Q SCH ×8 (00:43→23:45)
[2020-05-15] MEDS: IBUPROFEN 800 MG TAB PO PRN ×3 (01:08→19:12)
[2020-05-15] MEDS: SIMETHICONE 80 MG CHEW TAB PO PRN ×2 (01:09→21:52)
[2020-05-15] MEDS: oxyCODONE /ACETAMINOPHEN 5-325MG TAB PO PRN ×2 (05:58→11:54)
[2020-05-15] MEDS: INSULIN NPH, HUMAN 100 UNIT/1 ML SUB-Q SCH ×3 (08:43→19:07)
--- NOTE | 2020-05-15 12:36 | Event Note ---
Have gone to patient's room twice so far today to see her for rounds. Patient had not been in room. Will try again later today.
--- NOTE | 2020-05-15 17:58 | Progress Note ---
Assessment and Plan A: /postop day 2 S/P primary LTCS. Diabetes: sugars improving. History of depression with psychosis. P: Case management and psych consults. Encouraged ambulation. Continue current management. Subjective - Subjective Date of service: 05/15/20 Principal diagnosis: /postop day 2 S/P primary LTCS Patient reports: appetite normal, voiding normally, pain well controlled, flatus, ambulating normally, no dizzy ambulation, no nauseated : doing well, in NICU Objective - Vital Signs Latest vital signs: Vital Signs Temp Pulse Resp BP BP Pulse Ox 05/15/20 15:40 98.1 F 81 20 110/62 05/15/20 08:50 98.1 F 76 20 118/65 05/15/20 01:11 97.8 F 75 18 108/61 100 05/14/20 22:22 20 Intake and Output 05/15/20 05/15/20 05/15/20 07:59 15:59 23:59 Intake Total 380 880 Balance 380 880 Intake: Oral 880 Intake, Free Water 380 Other: Total, Intake Amount 320 # Voids Void 1 1 - Exam Narrative Exam: Blood sugar at 08:00 this morning was 101. Cardiovascular: Present: Regular rate Lungs: Present: Clear to auscultation Abdomen: Present: normal appearance, soft, normal bowel sounds. Absent: distention, tenderness, guarding, rigidity Uterus: Present: normal, firm, fundal height below umbilicus. Absent: bogginess, tenderness Extremities: Present: normal. Absent: tenderness Incision: Present: normal, dry, intact - Labs Labs: Abnormal lab results 05/14/20 05/14/20 05/15/20 Range/Units 18:14 22:21 05:57 POC Glucose 250 H 266 H 192 H (70-105) mg/dL
[2020-05-16] MEDS: oxyCODONE /ACETAMINOPHEN 5-325MG TAB PO PRN ×3 (00:40→16:54)
[2020-05-16] MEDS: IBUPROFEN 800 MG TAB PO PRN (05:35)
[2020-05-16] MEDS: INSULIN REGULAR, HUMAN 100 UNIT/ML 3ML VIAL SUB-Q SCH ×3 (05:35→19:11)
[2020-05-16] MEDS: INSULIN NPH, HUMAN 100 UNIT/1 ML SUB-Q SCH ×2 (09:01→17:13)
--- NOTE | 2020-05-16 11:19 | Progress Note ---
Assessment and Plan A: POD #3 IDDM Psychotic Depression P: Follow Routine PostOp Orders Continue MD Management of IDDM Awaiting Psy. Consult Subjective - Subjective Date of service: 05/16/20 Principal diagnosis: /postop day 2 S/P primary LTCS Patient reports: appetite normal, voiding normally, pain well controlled, flatus, bowel movement, ambulating normally, other (States she is feeling well mentally, but would like to start medication for Psychotic Depression. Denies SI and/or plans to hurt others) [place]: in NICU Objective - Vital Signs Latest vital signs: Vital Signs Temp Pulse Resp BP BP Pulse Ox 05/16/20 07:31 97.8 F 84 16 111/61 98 05/16/20 01:15 98.2 F 84 20 116/58 99 05/15/20 15:40 98.1 F 81 20 110/62 Intake and Output 05/15/20 05/16/20 05/16/20 22:59 06:59 14:59 Intake Total 320 120 Balance 320 120 Intake: Oral 320 120 Other: Total, Intake Amount 320 120 # Voids Void 1 1 - Exam Breasts: Present: normal Cardiovascular: Present: Regular rate Lungs: Present: Clear to auscultation, Normal air movement Abdomen: Present: normal appearance, soft, normal bowel sounds Uterus: Present: normal, firm, fundal height below umbilicus Extremities: Present: normal Incision: Present: normal, dry, intact - Labs Labs: Abnormal lab results 05/15/20 05/15/20 05/16/20 Range/Units 18:40 23:32 05:31 POC Glucose 165 H 170 H 203 H (70-105) mg/dL 05/16/20 Range/Units 08:06 POC Glucose 172 H (70-105) mg/dL
--- NOTE | 2020-05-16 12:49 | Consultation ---
History of Present Illness - Reason for Consult Consult date: 05/16/20 Reason for consult: scoring on depression scale - History of Present Psychiatric Illness Brooke Briggs is a 29y/o female who was admitted into the hospital for childbirth. During my interview with the patient today, she is lying down. She is calm and cooperative. She is pleasant. She makes good eye contact. The patient is aware of why psych services was consulted. She states she's "been a little depressed on and off since she was in high school." The patient says she is not on any medications and would like to be on something for depression. She says at one point she was but the patient could not recall what it was. Shes says "it's been years ago." She denies any recent psychiatric care, admits or medications. The patient says she had one suicide attempt when she was in "high school." She d enies any illicit drug use, alcohol or nicotine. PAST PSYCHIATRIC HISTORY: Diagnoses: Depression Suicide attempts or Self-harm behavior: Once Prior psychiatric hospitalizations: Once Substance Abuse history: Denies Previous psychiatric medications tried: "could not recall Outpatient treatment: Denies PAST MEDICAL HISTORY: None reported Family Psychiatric History: None reported or documented SOCIAL HISTORY Marital Status: Single Living Arrangements: with boyfriend Employment Status: Employed Access to guns/weapons: Denies Education: high school grad History of Abuse: none reported Legal History: Denies REVIEW OF SYSTEMS Constitutional: Negative for weight loss ENT: Negative for stridor Respiratory: Negative for cough or hemoptysis All other systems reviewed and are negative MENTAL STATUS EXAMINATION General Appearance: Dressed appropriately Behavior: cooperative. Good eye contact Mood: "a little depressed" Affect and affective range: Euthymic Thought Process: goal directed Speech: normal tone and pace Suicidal Ideation: Denies Homicidal Ideation: Denies Hallucinations: Denies Delusions: None elicited Insight and Judgment: Normal Memory/Cognition: Good Impulse control: Intact Attention: Limited Orientation: Alert, oriented x 3 Assessment Major Depressive Disorder PLAN Start Zoloft 25mg po daily Sitter: Defer to primary Medical: Per primary Disposition: Do not recommend acute inpatient psychiatric treatment at this time. The patient understands that if suicidal thoughts are to arise she is to seek immediate assistance including but not limited to the crisis hotline, 911/ER. The property condition assessor is to give the patient resources to establish outpatient psychiatry The patient is to follow up in 7 to 14 days with outpatient psych upon discharge Will sign off. Thank you for this consult Case staffed with Dr. Sousa. Medications and Allergies Allergies Allergy/AdvReac Type Severity Reaction Status Date / Time No Known Allergies Allergy Verified 09/19/17 08:42 Home Medications Medication Instructions Recorded Confirmed Last Taken Type Amoxicillin [Trimox CAP] 500 mg PO QDAY 03/04/17 03/14/17 1 Day Ago History ~03/03/17 Insulin Regular, Human 14 unit SQ QHS 03/04/17 03/14/17 1 Day Ago History ~03/03/17 Insulin Regular, Human 20 unit SQ QAM 03/04/17 03/14/17 1 Day Ago History ~03/03/17 NovoLIN N 10 unit SQ TID 03/04/17 03/14/17 1 Day Ago History ~03/03/17 Nystas/Diphen/Xyl Visc/Mylanta 30 ml MM Q4H PRN #200 ml 09/19/17 Unknown Rx [Magic Mouthwash] guaiFENesin ER [Mucinex ER] 600 mg PO Q12H #20 tablet.er 09/19/17 Unknown Rx Ibuprofen [Motrin 600 MG tab] 600 mg PO Q6H PRN #30 tablet 05/13/20 Unknown Rx oxyCODONE /ACETAMINOPHEN [Percocet 1 tab PO Q4HR #30 tab 05/13/20 Unknown Rx 5/325] Sertraline [Zoloft] 25 mg PO QDAY #30 tab 05/16/20 Unknown Rx Active Meds: Active Medications Ephedrine Sulfate (Ephedrine Sulfate) 10 mg IV Q2M PRN PRN Reason: Hypotension Lactated Ringer's (Lactated Ringers) 1,000 mls @ 125 mls/hr IV DIRECT NARA Last Admin: 05/13/20 16:15 Dose: 125 mls/hr Documented by: Oxytocin/Sodium Chloride (Pitocin/Ns 30 Unit/500ml) 30 units in 500 mls @ 40 ml s/hr IV TITR NARA; Protocol Ibuprofen (Ibuprofen) 800 mg PO Q6H PRN PRN Reason: Pain, Mild (1-3) Last Admin: 05/16/20 05:35 Dose: 800 mg Documented by: Insulin Human NPH (Humulin N) 21 unit SUB-Q QDDIAB NARA Last Admin: 05/16/20 09:01 Dose: 21 unit Documented by: Insulin Human NPH (Humulin N) 14 unit SUB-Q QPMDIAB [facility] Last Admin: 05/15/20 19:07 Dose: 14 unit Documented by: Insulin Human Regular (Humulin R) 0 unit SUB-Q Q6HR [facility]; Protocol Last Admin: 05/16/20 05:35 Dose: 3 unit Documented by: Insulin Human Regular (Humulin R) 14 unit SUB-Q QDDIAB [facility] Last Admin: 05/16/20 08:59 Dose: 14 unit Documented by: Insulin Human Regular (Humulin R) 14 unit SUB-Q QPMDIAB [facility] Last Admin: 05/15/20 19:07 Dose: 14 unit Documented by: Magnesium Hydroxide (Milk Of Magnesia) 30 ml PO QHS PRN PRN Reason: Constip Unrelieved By Senna Last Admin: 05/14/20 22:47 Dose: 30 ml Documented by: Mineral Oil (Mineral Oil) 30 ml PO QHS PRN PRN Reason: Constipation Multi-Ingredient Ointment (Lansinoh) 1 applic TP PRN PRN PRN Reason: dryness/cracking Naloxone HCl (Naloxone) 0.1 mg IV Q2MIN PRN PRN Reason: Res Rate </= 8 or 02 SAT < 92% Ondansetron HCl (Zofran) 4 mg IV Q8H PRN PRN Reason: Nausea And Vomiting Oxycodone/Acetaminophen (Percocet 5/325) 2 tab PO Q6H PRN PRN Reason: Pain, Moderate (4-6) Last Admin: 05/16/20 09:05 Dose: 2 tab Documented by: Katie (Senokot) 17.2 mg PO QHS PRN PRN Reason: Constipation Simethicone (Mylicon) 80 mg PO Q6H PRN PRN Reason: Gas pain Last Admin: 05/15/20 21:52 Dose: 80 mg Documented by: Sodium Chloride (Sodium Chloride Flush Syringe 10 Ml) 10 ml IV PRN PRN PRN Reason: LINE FLUSH Witch Adore/Glycerin (Tucks Pad) 1 each TP PRN PRN PRN Reason: Hemorrhoids/cleansing/soothing Mental Status Exam - Vital signs Last Vital Signs Temp 97.8 F 12/07/20 07:31 Pulse 84 05/16/20 07:31 Resp 16 05/16/20 07:31 BP 111/61 05/16/20 07:31 Pulse Ox 98 05/16/20 07:31 Results Result Diagrams: 05/13/20 14:17 Abnormal lab results 05/15/20 05/15/20 05/16/20 Range/Units 18:40 23:32 05:31 POC Glucose 165 H 170 H 203 H (70-105) mg/dL 05/16/20 Range/Units 08:06 POC Glucose 172 H (70-105) mg/dL All other labs normal.
[2020-05-16] MEDS: SERTRALINE 25 MG TAB PO SCH (20:24)
[2020-05-17] MEDS: INSULIN REGULAR, HUMAN 100 UNIT/ML 3ML VIAL SUB-Q SCH ×3 (00:09→08:49)
[2020-05-17] MEDS: oxyCODONE /ACETAMINOPHEN 5-325MG TAB PO PRN (00:10)
[2020-05-17] MEDS: IBUPROFEN 800 MG TAB PO PRN (05:35)
[2020-05-17] MEDS: INSULIN NPH, HUMAN 100 UNIT/1 ML SUB-Q SCH (08:51)
[2020-05-17 09:39] VITALS: BP 109/72
--- NOTE | 2020-05-17 11:17 | Discharge Summary ---
Providers - Providers Date of Admission: 05/12/20 22:51 Date of discharge: 05/17/20 Attending physician: JOSEFINA GARCIA 05/15/20 08:50 Consult to Case Management [CONS] Routine Services Needed at Discharge: [employer] Lead Notified:: JOI Phone number called:: [phone] Was contact made?: Yes If yes, spoke with:: Mr. Duarte Time called:: 11:16 Additional Physician Instructions: Hx. Depression, psychosis, and suicidal ideation. Consult to Mental Health [CONS] Routine Reason For Exam: ; history of depression/psychosis Primary care physician: JOSEFINA GARCIA Hospitalization Reason for admission: section Delivery: Procedure: primary low transverse Episiotomy: none Laceration: none Incision: dry, intact (abdominal binder in place) Other procedures: none complications: none Discharge diagnosis: IUP at term delivered [place] baby: female (NICU) Hospital course: See admission H & P; OB operative summary and PP progress notes Condition at discharge: Good Disposition: DC-01 TO HOME OR SELFCARE - Discharge Diagnoses (1) Status post primary low transverse section Status: Acute (2) HSV-2 infection complicating Status: Acute (3) History of depression Status: Acute (4) Insulin dependent diabetes mellitus Status: Acute Plan - Discharge Medications Prescriptions: Ibuprofen [Motrin 600 MG tab] 600 mg PO Q6H PRN #30 tablet PRN Reason: Pain oxyCODONE /ACETAMINOPHEN [Percocet 5/325] 1 tab PO Q4HR #30 tab Sertraline [Zoloft] 25 mg PO QDAY #30 tab - Provider Discharge Summary Activity: routine, no sex for 6 weeks, no heavy lifting 4 weeks, no strenuous exercise Diet: other (Iron rich diet) Instructions: routine Additional instructions: [] Smoking cessation referral if applicable(refer to patient education folder for contact #) [] Refer to [facility] Booklet Call your doctor immediately for: * Fever > 100.5 * Heavy vaginal bleeding ( >1 pad per hour) * Severe persistent headache * Shortness of breath * Reddened, hot, painful area to leg or breast * Drainage or odor from incision. * Keep incision clean and dry at all times and follow doctor's instructions regarding bathing/showering - Follow up plan Follow up: JOSEFINA GARCIA MD [Primary Care Provider] - 14 Days
[2020-05-17] MEDS: SERTRALINE 25 MG TAB PO SCH (13:23)
== END 2020-05-17 14:30 | disposition home or self-care (01) | DRG 765 ==
LOC: TRG 19:29 → APU 19:37 → TRG 22:45 → LD 22:51 → OBSVTOIN 22:51 → OB 05-13 03:55
PROVIDERS: ADMIT Obstetrics & Gynecology; ATTEND Obstetrics & Gynecology
PROC: 10D00Z1 Extraction of Products of Conception, Low, Open Approach (ICD-10-PCS; principal; 2020-05-13)
DX: O32.1XX0 Maternal care for breech presentation, not applicable or unspecified (principal); O24.12 Pre-existing type 2 diabetes mellitus, in childbirth; O98.32 Other infections with a predominantly sexual mode of transmission complicating childbirth; Z37.0 Single live birth; Z3A.37 37 weeks gestation of pregnancy; A60.00 Herpesviral infection of urogenital system, unspecified; E11.9 Type 2 diabetes mellitus without complications; Z20.828 Contact with and (suspected) exposure to other viral communicable diseases; O99.824 Streptococcus B carrier state complicating childbirth; Z79.4 Long term (current) use of insulin; O69.81X0 Labor and delivery complicated by cord around neck, without compression, not applicable or unspecified; O99.344 Other mental disorders complicating childbirth; F32.9 Major depressive disorder, single episode, unspecified; O99.02 Anemia complicating childbirth; D64.9 Anemia, unspecified
CPT/HCPCS: 36415; 76815; 82962; 85014; 85018; 85027; 86850; 86900; 86901; G0378; J1815; J1885; J2274; J2405; J3490; J7120; U0003

== ENCOUNTER 2020-07-06 06:33 | Day surgery (SDC) | payer MEDICAID ==
[2020-07-04 11:51] LABS: Hematocrit 44.3 % (30.3-42.9); Hemoglobin 14.8 gm/dl (10.1-14.3); Mean Corpuscular HGB Conc 34 % (30-34); Mean Corpuscular Volume 84 fl (79-97); Platelet Count 344 K/mm3 (140-440); Red Blood Count 5.26 M/mm3 (3.65-5.03)
[2020-07-04 12:02] LABS: Blood Urea Nitrogen 13 mg/dL (7-17); Calcium 9.3 mg/dL (8.4-10.2); Hemolysis Index 9
[2020-07-04 12:04] LABS: BUN/Creatinine Ratio 22
[~2020-07-06 06:33] MED LIST: BACTERIOSTATIC SODIUM CHLORIDE 0.9% 30 ML VIAL INFILTRATI ONE
--- NOTE | 2020-07-06 07:01 | Anesthesia Consultation ---
Anesthesia Consult and Med Hx Date of service: 07/06/20 - Airway Anesthetic Teeth Evaluation: Good ROM Head & Neck: Adequate Mental/Hyoid Distance: Adequate Mallampati Class: Class I Intubation Access Assessment: Good - Pulmonary Exam CTA: Yes - Cardiac Exam Cardiac Exam: RRR - Pre-Operative Health Status ASA Pre-Surgery Classification: ASA2 Proposed Anesthetic Plan: General - Pulmonary Hx Smoking: Yes (Past hx) Hx Asthma: No COPD: No Hx Pneumonia: No - Cardiovascular System Hx Hypertension: No - Central Nervous System Hx Seizures: No Hx Psychiatric Problems: No - Endocrine Hx Renal Disease: No Hx End Stage Renal Disease: No Hx Non-Insulin Dependent Diabetes: Yes Hx Hypothyroidism: No Hx Hyperthyroidism: No - Hematic Hx Anemia: Yes Hx Sickle Cell Disease: No - Other Systems Hx Alcohol Use: (NOT SINCE ) Hx Cancer: No
--- NOTE | 2020-07-06 07:01 | Anesthesia Day of Surgery ---
Anesthesia Day of Surgery - Day of Surgery Patient Examined: Yes Patient H&P Reviewed: Yes Patient is NPO: Yes
[2020-07-06] MEDS ORDERED: LACTATED RINGERS 1,000 ML IV SCH (07:15)
[2020-07-06] MEDS ORDERED: MIDAZOLAM 2 MG/2 ML INJ IV NR (08:00)
[2020-07-06] MEDS ORDERED: propofoL 200 MG/20 ML VIAL IV ONE (09:21)
[2020-07-06] MEDS ORDERED: dexAMETHasone 20 MG/5 ML VIAL ONE (09:26)
[2020-07-06] MEDS ORDERED: KETOROLAC 30 MG/1 ML INJ ONE (09:26)
[2020-07-06] MEDS ORDERED: ONDANSETRON 4 MG/2 ML INJ ONE (09:26)
[2020-07-06] MEDS ORDERED: fentaNYL 100 MCG/2 ML INJ ONE (09:27)
[2020-07-06] MEDS ORDERED: ONDANSETRON 4 MG/2 ML INJ IV PRN (09:47)
[2020-07-06] MEDS ORDERED: HYDROmorphone 1 MG/1 ML INJ IV PRN ×2 (09:47)
[2020-07-06] MEDS ORDERED: SODIUM CHLORIDE 0.9% IRR 1,000 ML BOTTLE IR ONE (09:58)
--- NOTE | 2020-07-06 10:13 | Post Operative Note ---
Date of procedure: 07/06/20 Pre-op diagnosis: superficial wound dehiscence Post-op diagnosis: same Findings: Patient had 3 areas of superficial wound separation on the right side of her C- section incision. The fascia underneath was intact. Procedure: Wound revision. Patient is status post low-transverse on 05/13. Patient had 3 areas on the right side of her wound that superficially would not reapproximate. Of note patient notes that she was noncompliant with her insulin for her diabetes control. As result, patient here for her wound revision. Patient taken the operating room and prepped draped in the usual fashion. An elliptical incision was made around the right half of her wound which included the 3 open areas. The underlying fascia was inspected and no defects were noted. The subcutaneous tissue was then reapproximated with 2-0 Vicryl. Subcuticular layer was closed with 3-0 Vicryl followed by Dermabond. Good hemostasis was noted. Procedure concluded this point. Patient tolerated procedure well. All instrument implants were correct. Patient taken to the recovery in stable condition. Anesthesia: GETA Surgeon: JOSEFINA GARCIA Estimated blood loss: minimal Pathology: none Condition: stable Disposition: PACU
--- NOTE | 2020-07-06 10:21 | Short Stay Summary ---
Short Stay Documentation Date of service: 07/06/20 Narrative H&P: Pt here on 07/06/20 for wound revision after her LTCS on 05/13. Surgery was uncomplicated. See H&P and OP report for details. PT sent home in stable condition and to f/u in the office in 2 weeks. - History H&P: obtained from office Past Medical History: diabetes - Allergies and Medications Current Medications: Allergies No Known Allergies Allergy (Verified 07/04/20 08:37) Home Medications Medication Instructions Recorded Confirmed Last Taken Type NovoLIN N 7 unit SQ QAM 03/04/17 07/04/20 07/05/20 History Insulin NPH, Human [NovoLIN N] 20 unit SUB-Q HS 07/04/20 07/06/20 07/05/20 History Insulin Regular, Human [Novolin R 10 unit SQ TID 07/04/20 07/04/20 07/05/20 History Flexpen] Active Medications Hydromorphone HCl (Hydromorphone 1 Mg/1 Ml Inj) 0.5 mg IV Q10MIN PRN PRN Reason: Pain , Severe (7-10) Hydromorphone HCl (Hydromorphone 1 Mg/1 Ml Inj) 0.25 mg IV Q10MIN PRN PRN Reason: Pain, Moderate (4-6) Lactated Ringer's (Lactated Ringers) 1,000 mls @ 125 mls/hr IV DIRECT [facility] Last Admin: 07/06/20 07:45 Dose: 125 mls/hr Documented by: Midazolam HCl (Midazolam 2 Mg/2 Ml Inj) 2 mg IV PREOP NR Stop: 07/06/20 23:59 Last Admin: 07/06/20 09:10 Dose: 2 mg Documented by: Ondansetron HCl (Ondansetron 4 Mg/2 Ml Inj) 4 mg IV ONCE PRN PRN Reason: Nausea And Vomiting - Disposition Condition at discharge: Stable Disposition: DC-01 TO HOME OR SELFCARE Short Stay Discharge Plan Follow up with: PRIMARY CARE,MD [Primary Care Provider] - 7 Days
--- NOTE | 2020-07-06 10:42 | Post Anesthesia Evaluation ---
- Post Anesthesia Evaluation Patient Participated: Yes Airway Patent: Yes Stable Respiratory Function: Yes Nausea/Vomiting: No Temp > 96.8F: Yes Pain Manageable: Yes Adequeate Hydration: Yes Anesthesia Complications: No Block Receding Appropriately: Not Applicable Patient on Ventilator: No
[2020-07-06 11:54] VITALS: BP 106/66
== END 2020-07-06 11:45 | disposition home or self-care (01) ==
LOC: OR 06:33
PROVIDERS: ATTEND Obstetrics & Gynecology
DX: T81.30XA Disruption of wound, unspecified, initial encounter (principal); E11.9 Type 2 diabetes mellitus without complications; F32.9 Major depressive disorder, single episode, unspecified; Z87.891 Personal history of nicotine dependence; Z79.899 Other long term (current) drug therapy; Z79.4 Long term (current) use of insulin; Z98.891 History of uterine scar from previous surgery; Z72.89 Other problems related to lifestyle; Z83.3 Family history of diabetes mellitus; Z82.49 Family history of ischemic heart disease and other diseases of the circulatory system; Y92.89 Other specified places as the place of occurrence of the external cause; Y83.8 Other surgical procedures as the cause of abnormal reaction of the patient, or of later complication, without mention of misadventure at the time of the procedure
CPT/HCPCS: 12020; 36415; 80048; 82962; 84703; 85027; J1100; J1885; J2250; J2405; J2704; J3010; J7120